=== PATIENT | male | born 1990 | race Caucasian/White ===

== ENCOUNTER 2023-06-21 10:05 | Emergency (ER) | payer MEDICAID ==
[~2023-06-21] VITALS: Ht 172.7 cm; Wt 123.4 kg
[2023-06-21] MEDS: oxyCODONE/APAP (5/325 MG) 1 UDTAB TABLET PO ONE (11:00)
[2023-06-21] MEDS ORDERED: oxyCODONE/APAP (5/325 MG) 1 UDTAB TABLET ONE (12:21)
[2023-06-21] MEDS ORDERED: METH4TAB17 PO (12:22)
[2023-06-21 13:13] VITALS: BP 148/80; TEMP 98.1; O2SAT 97
[2023-06-21] MEDS ORDERED: dexaMETHasone SOD PHOSPHATE 4 MG/ML VIAL ONE (13:21)
[2023-06-21] MEDS: dexaMETHasone SOD PHOSPHATE 4 MG/ML VIAL IM ONE (13:26)
== END 2023-06-21 13:13 | disposition home or self-care (01) ==
LOC: ER 10:05
DX: M54.16 Radiculopathy, lumbar region (principal); M54.41 Lumbago with sciatica, right side
CPT/HCPCS: 99285; 72131; 96372; J1100